=== PATIENT | female | born 1980 | race African-American/Black ===

== ENCOUNTER 2016-11-04 12:47 | Emergency (ER) | payer SELFPAY ==
[2016-11-04] MEDS ORDERED: Naproxen 500 MG TAB ONE (13:22)
--- NOTE | 2016-11-04 14:12 | RAD ---
CHEST PA AND LATERAL TWO VIEWS: History: 36-year-old female with left chest and left shoulder pain without associated injury. FINDINGS: Heart size is normal. The lungs are clear. IMPRESSION: No acute intrathoracic disease. POS: [facility]
--- NOTE | 2016-11-04 14:33 | ERRECORD ---
[facility] EMERGENCY RECORD HPI SHOULDER (13:16 ALIM) CHIEF COMPLAINT: Patient presents for evaluation of numbness, to the left shoulder, Patient presents for evaluation of pain, to the left shoulder. HISTORIAN: History provided by patient, 36 y/o female with no pmh, presenting with 2 days of L shoulder pain, located in the posterior shoulder, worse with internal rotation. Pt notes mild numbness in the distal LUE. No other complaints. MECHANISM OF INJURY: Unknown mechanism. LOCATION: Symptoms are localized, most severe in the scapula. QUALITY: Pain is dull in nature. SEVERITY: Maximum severity of symptoms moderate, Currently symptoms are moderate. TIME COURSE: Gradual onset of symptoms, 2, days priror to arrival. ASSOCIATED WITH: No associated alcohol use, No associated clavicle pain, No associated coolness to touch, No associated decreased range of motion, No associated decreased use, No associated distal injury, Associated with distal neuro complaint, No associated elbow pain, No associated erythema, No associated fever, No associated finger pain, No associated hand pain, No associated proximal injury, No associated open wounds, No associated swelling, No associated warmth, No associated wrist pain, No associated weakness distal to injury, Denies any other complaints. EXACERBATED BY: Patient's condition exacerbated by movement. RELIEVED BY: Patient's condition relieved by nothing, Patient's condition relieved by no pain medication taken since last night, Patient's condition relieved by nothing because patient has not tried anything for relief. ROS (13:18 ALIM) CONSTITUTIONAL: Negative constitutional review of systems, Historian denies chills, denies fever. EYES: Negative eye review of systems, Historian denies eye pain, denies eye redness. ENT: Negative ears, nose, throat review of systems, Historian denies rhinorrhea, denies sore throat. CARDIOVASCULAR: Negative cardiovascular review of systems, Historian denies chest pain, no radiation, Historian denies syncope. RESPIRATORY: Negative respiratory review of systems, Historian denies cough, denies shortness of breath. GI: Negative gastrointestinal review of systems, Historian denies abdominal pain, denies constipation, denies diarrhea, denies nausea, denies vomiting. MUSCULOSKELETAL: Historian denies back pain, denies neck pain. L posterior shoulder pain. SKIN: Negative skin review of systems, Historian denies rash, denies skin changes. NEUROLOGIC: Negative neurologic review of systems, Historian denies dizziness, denies focal weakness, denies headache. PSYCHIATRIC: Negative psychiatric review of systems, Historian &a-1R&a+25V*p+0X*[id number]*c202B*c15G*c2P*p-0X&a-25V&a+1R Name: Danita Lundberg : 1980 F36 MedRec: [id number] AcctNum: [id number] Prepared: FriNov 04, 2016 15:40 by Interface Page 1 of 4 pMD [facility] EMERGENCY RECORD denies alcohol abuse, denies anxiety, denies depression. NOTES: All systems reviewed, negative except as described above. PAST MEDICAL HISTORY MEDICAL HISTORY: Notes: ANENIA, CONSTIPATION, Flu vaccine up to date, Tetanus not up to date, Pneumococcal vaccine not up to date. (13:14 JPAR) FEMALE SURGICAL HISTORY: Surgical history of section, Surgical history of tubal ligation. (13:14 JPAR) SOCIAL HISTORY: Patient denies alcohol use, Patient denies drug use, Patient has no smoking history. (13:14 JPAR) NOTES: Nursing records reviewed, Agree with nursing records, Medication list reviewed, I have reviewed and agree with nursing PMH, PSH, social history, and FH. (13:18 ALIM) KNOWN ALLERGIES No Known Drug Allergies CURRENT MEDICATIONS Iron (ferrous sulfate): TABLET : Strength - 325 mg (65 mg iron) : ORAL Patient Dose: 1 tab(s) Oral once a day. (12:58 JPAR) Colace: CAPSULE : Strength - 100 mg : ORAL Patient Dose: 1 tab(s) Oral once a day. (12:59 JPAR) VITAL SIGNS VITAL SIGNS: BP: 121/81, Pulse: 85, Resp: 18, Temp: 97 (Oral), Pain: 8 (Stabbing), O2 sat: 100, Time: 11/04/2016 12:55. (12:55 JPAR) BP: 104/71, Pulse: 76, Resp: 17, Pain: 3, O2 sat: 100 on RA, Time: 11/04/2016 14:20. (14:20 GHIA) PHYSICAL EXAM (13:18 ALIM) CONSTITUTIONAL: Vital Signs Reviewed, Patient afebrile, Pulse normal, Blood pressure normal, Respiratory rate normal, Patient appears non toxic, Patient appears, in moderate pain distress, Patient alert and oriented to person, place and time, Nursing notes reviewed. HEAD: Head exam normal, Head exam included findings of head atraumatic, normocephalic. EYES: Eye exam normal, Eye exam included findings of eyelids normal to inspection, Pupils equally round and reactive to light, Extraocular muscles intact. ENT: ENT exam normal, Ear exam normal, Nose exam normal, Pharynx exam normal. NECK: Neck exam normal, Neck exam included findings of normal range of motion, Trachea midline. RESPIRATORY CHEST: Respiratory and chest exam normal, Respiratory exam included findings of no respiratory distress, Breath sounds &a-1R&a+25V*p+0X*[id number]*c202B*c15G*c2P*p-0X&a-25V&a+1R Name: Danita Lundberg : 1980 F36 MedRec: [id number] AcctNum: [id number] Prepared: FriNov 04, 2016 15:40 by Interface Page 2 of 4 pMD [facility] EMERGENCY RECORD clear, No wheezing. CARDIOVASCULAR: Cardiovascular assessment normal, Cardiovascular exam included findings of heart rate regular rate and rhythm, Heart sounds normal. BACK: Back exam normal, Back exam included findings of normal inspection, range of motion normal. UPPER EXTREMITY: Left clavicle exam normal, Right clavicle exam normal, Left shoulder exam included findings of, no ecchymosis, no swelling, no hematoma, no erythema, no warmth, tenderness, active range of motion normal, passive range of motion normal, distal pulses normal, capillary refill less than 2 seconds, distal motor intact, distal sensory intact, Right shoulder unaffected, Right shoulder exam normal, Left upper arm exam normal, Right upper arm exam normal, Left elbow exam normal, Right elbow exam normal, Left forearm exam normal, Right forearm exam normal, Left wrist exam normal, Right wrist exam normal, Left hand exam normal, Right hand exam normal. LOWER EXTREMITY: Lower extremity exam normal, Lower extremity exam included findings of inspection normal, Range of motion normal. NEURO: Neuro exam normal, Neeraj coma scale 15, Neuro exam findings include patient oriented to person, place and time, Speech normal, Gait normal. SKIN: Skin exam normal, Skin exam included findings of skin warm, dry, and normal in color. PSYCHIATRIC: Psychiatric exam normal, Psychiatric exam included findings of patient oriented to person place and time, Normal affect, Judgment normal. MEDICATION ADMINISTRATION SUMMARY Drug Name: Naprosyn, Dose Ordered: 500 mg, Route: Oral, Status: Given, Time: 13:30 11/04/2016, Detailed record available in Medication Service section. PROBLEM LIST No recorded problems DIAGNOSIS (13:20 ALIM) FINAL: PRIMARY: LEFT shoulder pain, ADDITIONAL: Left shoulder strain. PRESCRIPTION (13:21 ALIM) Mobic: TABLET : 15 mg : ORAL : Quantity: 15 Unit: mg Route: ORAL Schedule: once a day Dispense: 20 Unit: tab(s) May substitute. Refills: No Refills . NOTES: No Refills. Robaxin oral: TABLET : 750 mg : ORAL : Quantity: 750 Unit: mg Route: ORAL Schedule: every 6 hours PRN Dispense: 20 Unit: mg May substitute. Refills: No Refills . &a-1R&a+25V*p+0X*[id number]*c202B*c15G*c2P*p-0X&a-25V&a+1R Name: Danita Lundberg : 1980 F36 MedRec: [id number] AcctNum: [id number] Prepared: FriNov 04, 2016 15:40 by Interface Page 3 of 4 pMD [facility] EMERGENCY RECORD NOTES: No Refills. acetaminophen-codeine: TABLET : 300 mg-30 mg : ORAL : Quantity: 1 Unit: tab(s) Route: ORAL Schedule: every 8 hours PRN Dispense: 10 Unit: tab(s) May substitute. Refills: No Refills . NOTES: No Refills. DISPOSITION PATIENT: Disposition Type: Discharge, Disposition: *Discharge Home. (13:57 ALIM) Patient left the department. (14:30 MARISSA) Perez: JUAN=MD Baldemar, Chris ANN=OLYA Calzada, Polly HENLEY=OLYA Ramsay, Zheng &a-1R&a+25V*p+0X*[id number]*c202B*c15G*c2P*p-0X&a-25V&a+1R Name: Danita Lundberg : 1980 F36 MedRec: [id number] AcctNum: [id number] Prepared: FriNov 04, 2016 15:40 by Interface Page 4 of 4 pMD MTDD
--- NOTE | 2016-11-04 14:39 | PICIS ---
[facility] EMERGENCY RECORD TRIAGE (12:57 JPAR) TRIAGE NOTES: l BACK SHOULDER PAIN LEFT ARM NUMBNESS, PAIN WHEN CHANGING POSITIONS. (12:57 JPAR) PATIENT: NAME: Danita Lundberg, AGE: 36, GENDER: female, : Sun 1980, TIME OF GREET: FriNov 04, 2016 12:48, PREFERRED LANGUAGE: Urdu, ETHNICITY: Not or , ECODE BILLING MAP: [facility], SSN: [id number], Zip Code: [address], KG WEIGHT: 108.86, PHONE: , , , PERSON ID: [id number], PCP: Krystal WELCH. (12:57 JPAR) COMPLAINT: LEFT SHOULDER PAIN,LEFT HAND TINGLING. (12:57 JPAR) ADMISSION: URGENCY: 4 Non Urgent, ADMISSION SOURCE: Home, TRANSPORT: CAR, BED: TRIAGE. (12:57 JPAR) ASSESSMENT: Assessment: EFT SHOULDER PAIN, BACK PAIN RADIATES DOWN ARM, Symptoms began 2 DAYS, Symptoms began 2 days ago. (13:14 JPAR) SIRS SCORING: Heart Rate 55-109 (0), Temp range 96.8-101.1 (0), respiratory rate 12-24 (0), Mental Status altered: no (0), Infection or Suspected Infection: No. (13:14 JPAR) TRIAGE SCREENING: Patient denies suicidal ideation, Patient denies presence of domestic violence. (13:14 JPAR) PROVIDERS: TRIAGE NURSE: Zheng Ramsay RN. (12:57 JPAR) VITAL SIGNS: BP 121/81, Pulse 85, Resp 18, Temp 97, (Oral), Pain 8, (Stabbing), O2 Sat 100, Time 11/04/2016 12:55. (12:55 JPAR) KNOWN ALLERGIES No Known Drug Allergies CURRENT MEDICATIONS Iron (ferrous sulfate): TABLET : Strength - 325 mg (65 mg iron) : ORAL Patient Dose: 1 tab(s) Oral once a day. (12:58 JPAR) Colace: CAPSULE : Strength - 100 mg : ORAL Patient Dose: 1 tab(s) Oral once a day. (12:59 JPAR) VITAL SIGNS VITAL SIGNS: BP: 121/81, Pulse: 85, Resp: 18, Temp: 97 (Oral), Pain: 8 (Stabbing), O2 sat: 100, Time: 11/04/2016 12:55. (12:55 JPAR) BP: 104/71, Pulse: 76, Resp: 17, Pain: 3, O2 sat: 100 on RA, Time: 11/04/2016 14:20. (14:20 GHIA) NURSING ASSESSMENT: BACK (13:00 JPAR) CONSTITUTIONAL: Patient arrives ambulatory, Gait steady, History obtained from patient, Patient appears, uncomfortable, Patient cooperative, Patient alert, Oriented to person, place and time, Skin warm, Skin dry, Skin normal in color, Mucous membranes pink, Mucous membranes moist, Patient complains of L flank/ shoulder pain, impinged nerve. PAIN: aching pain, to the upper back, to &a-1R&a+25V*p+0X*q8085W*c202B*c15G*c2P*p-0X&a-25V&a+1R Name: Danita Lundberg : 1980 F36 MedRec: [id number] AcctNum: [id number] Prepared: FriNov 04, 2016 15:40 by Interface Page 1 of 8 pMD [facility] EMERGENCY RECORD the mid back, to the left flank, on a scale 0-10 patient rates pain as 8. BACK: Paresthesias described as, tingling sensation, to the left upper extremity, no weakness to extremities, no incontinence of bowel or bladder, Right radial pulse +3(easily palpated, considered normal), Left radial pulse +3(easily palpated, considered normal), Left dorsalis pedis pulse +3(easily palpated, considered normal), Right dorsalis pedis pulse +3(easily palpated, considered normal). SAFETY: Side rails up, Cart/Stretcher in lowest position, Family at bedside, Call light within reach, Hospital ID band on. NURSING PROCEDURE: DISCHARGE NOTE (14:20 GHIA) DISCHARGE: Patient discharged to home, ambulating without assistance, patient walking, accompanied by friend, Summary of Care printed/ provided, Transition record given to patient, Discharge instructions given to patient, Simple or moderate discharge teaching performed, Prescriptions given and instructions on side effects given, Above person(s) verbalized understanding of discharge instructions and follow-up care. BELONGINGS: Belongings remain with patient, Valuables remain with patient. NOTES: Patient tolerated procedure well. SAFETY: Notes: Pt cheerful. No c/o. VITAL SIGNS: BP: 104, / 71, Pulse: 76, Resp: 17, Pain: 3, O2 sat: 100, on: RA. NURSING PROCEDURE: NURSE NOTES (14:15 GHIA) NURSES NOTES: Notes: Per Zheng Yoder...it is Ok for me to discharge pt. NURSING PROCEDURE: URINE COLLECTION (13:29 JPAR) PATIENT IDENTIFIER: Patient actively involved in identification process, Patient's identity verified by patient stating name, Patient's identity verified by patient stating date, Patient's identity verified by hospital ID bracelet, Patient's identity verified by family member. URINE COLLECTION FEMALE: Urine collection indicated to monitor output, Urine collected by void, output amount (mL) 100, urine yellow in color, and clear, Specimen labeled in the presence of the patient and sent to lab, Specimen obtained for culture labeled in the presence of the patient and sent to lab. SAFETY: Side rails up, Cart/Stretcher in lowest position, Family at bedside, Call light within reach, Hospital ID band on. ORDER DETAILS Order Name: Test, Urine (BHCG), Status: Active, Time: 13:05 11/04/2016, User: JUAN, - Ordered for: MD Mcdermott Arthur, &a-1R&a+25V*p+0X*f2350D*c202B*c15G*c2P*p-0X&a-25V&a+1R Name: Danita Lundberg : 1980 F36 MedRec: [id number] AcctNum: [id number] Prepared: FriNov 04, 2016 15:40 by Interface Page 2 of 8 pMD [facility] EMERGENCY RECORD - Entered by: MD Mcdermott Arthur - FriNov 04, 2016 13:05, - Quantity: 1, Order Name: XR Chest Pa & Lat STANDARD, Status: Active, Time: 13:04 11/04/2016, User: JUAN, - Ordered for: MD Mcdermott Arthur, - Entered by: MD Mcdermott Arthur - FriNov 04, 2016 13:04, - Quantity: 1, Order Name: XR Shoulder Lt 3 View STANDARD, Status: Active, Time: 13:04 11/04/2016, User: JUAN, - Ordered for: MD Mcdermott Arthur, - Entered by: MD Mcdermott Arthur - FriNov 04, 2016 13:04, - Quantity: 1. MEDICATION ADMINISTRATION SUMMARY Drug Name: Naprosyn, Dose Ordered: 500 mg, Route: Oral, Status: Given, Time: 13:30 11/04/2016, Detailed record available in Medication Service section. MEDICATION SERVICE (13:30 ALIM) Naprosyn: Order: Naprosyn (naproxen) - Dose: 500 mg : Oral Schedule: Now Ordered by: Chris Mcdermott MD Entered by: Chris Mcdermott MD FriNov 04, 2016 13:06 , Acknowledged by: Zheng Ramsay RN FriNov 04, 2016 13:14 Documented as given by: Zheng Ramsay RN FriNov 04, 2016 13:30 Patient, Medication, Dose, Route and Time verified prior to administration. Patient appears Awake and alert- acceptable, Correct patient, time, route, dose and medication confirmed prior to administration, Patient advised of actions and side-effects prior to administration, Allergies confirmed and medications reviewed prior to administration, Patient in position of comfort, Side rails up, Cart in lowest position, Family at bedside, Call light in reach. HPI SHOULDER (13:16 ALIM) CHIEF COMPLAINT: Patient presents for evaluation of numbness, to the left shoulder, Patient presents for evaluation of pain, to the left shoulder. HISTORIAN: History provided by patient, 36 y/o female with no pmh, presenting with 2 days of L shoulder pain, located in the posterior shoulder, worse with internal rotation. Pt notes mild numbness in the distal LUE. No other complaints. MECHANISM OF INJURY: Unknown mechanism. LOCATION: Symptoms are localized, most severe in the scapula. QUALITY: Pain is dull in nature. SEVERITY: Maximum severity of symptoms moderate, Currently symptoms are moderate. TIME COURSE: Gradual onset of symptoms, 2, days priror to arrival. ASSOCIATED WITH: &a-1R&a+25V*p+0X*p7894C*c202B*c15G*c2P*p-0X&a-25V&a+1R Name: Danita Lundberg : 1980 F36 MedRec: [id number] AcctNum: [id number] Prepared: FriNov 04, 2016 15:40 by Interface Page 3 of 8 pMD [facility] EMERGENCY RECORD No associated alcohol use, No associated clavicle pain, No associated coolness to touch, No associated decreased range of motion, No associated decreased use, No associated distal injury, Associated with distal neuro complaint, No associated elbow pain, No associated erythema, No associated fever, No associated finger pain, No associated hand pain, No associated proximal injury, No associated open wounds, No associated swelling, No associated warmth, No associated wrist pain, No associated weakness distal to injury, Denies any other complaints. EXACERBATED BY: Patient's condition exacerbated by movement. RELIEVED BY: Patient's condition relieved by nothing, Patient's condition relieved by no pain medication taken since last night, Patient's condition relieved by nothing because patient has not tried anything for relief. ROS (13:18 ALIM) CONSTITUTIONAL: Negative constitutional review of systems, Historian denies chills, denies fever. EYES: Negative eye review of systems, Historian denies eye pain, denies eye redness. ENT: Negative ears, nose, throat review of systems, Historian denies rhinorrhea, denies sore throat. CARDIOVASCULAR: Negative cardiovascular review of systems, Historian denies chest pain, no radiation, Historian denies syncope. RESPIRATORY: Negative respiratory review of systems, Historian denies cough, denies shortness of breath. GI: Negative gastrointestinal review of systems, Historian denies abdominal pain, denies constipation, denies diarrhea, denies nausea, denies vomiting. MUSCULOSKELETAL: Historian denies back pain, denies neck pain. L posterior shoulder pain. SKIN: Negative skin review of systems, Historian denies rash, denies skin changes. NEUROLOGIC: Negative neurologic review of systems, Historian denies dizziness, denies focal weakness, denies headache. PSYCHIATRIC: Negative psychiatric review of systems, Historian denies alcohol abuse, denies anxiety, denies depression. NOTES: All systems reviewed, negative except as described above. PAST MEDICAL HISTORY MEDICAL HISTORY: Notes: ANENIA, CONSTIPATION, Flu vaccine up to date, Tetanus not up to date, Pneumococcal vaccine not up to date. (13:14 JPAR) FEMALE SURGICAL HISTORY: Surgical history of section, Surgical history of tubal ligation. (13:14 JPAR) SOCIAL HISTORY: Patient denies alcohol use, Patient denies drug use, Patient has no smoking history. (13:14 JPAR) NOTES: Nursing records reviewed, Agree with nursing records, Medication list reviewed, I have reviewed and agree with nursing PMH, &a-1R&a+25V*p+0X*d8113F*c202B*c15G*c2P*p-0X&a-25V&a+1R Name: Danita Lundberg : 1980 F36 MedRec: [id number] AcctNum: [id number] Prepared: FriNov 04, 2016 15:40 by Interface Page 4 of 8 pMD [facility] EMERGENCY RECORD PSH, social history, and FH. (13:18 ALIM) PHYSICAL EXAM (13:18 ALIM) CONSTITUTIONAL: Vital Signs Reviewed, Patient afebrile, Pulse normal, Blood pressure normal, Respiratory rate normal, Patient appears non toxic, Patient appears, in moderate pain distress, Patient alert and oriented to person, place and time, Nursing notes reviewed. HEAD: Head exam normal, Head exam included findings of head atraumatic, normocephalic. EYES: Eye exam normal, Eye exam included findings of eyelids normal to inspection, Pupils equally round and reactive to light, Extraocular muscles intact. ENT: ENT exam normal, Ear exam normal, Nose exam normal, Pharynx exam normal. NECK: Neck exam normal, Neck exam included findings of normal range of motion, Trachea midline. RESPIRATORY CHEST: Respiratory and chest exam normal, Respiratory exam included findings of no respiratory distress, Breath sounds clear, No wheezing. CARDIOVASCULAR: Cardiovascular assessment normal, Cardiovascular exam included findings of heart rate regular rate and rhythm, Heart sounds normal. BACK: Back exam normal, Back exam included findings of normal inspection, range of motion normal. UPPER EXTREMITY: Left clavicle exam normal, Right clavicle exam normal, Left shoulder exam included findings of, no ecchymosis, no swelling, no hematoma, no erythema, no warmth, tenderness, active range of motion normal, passive range of motion normal, distal pulses normal, capillary refill less than 2 seconds, distal motor intact, distal sensory intact, Right shoulder unaffected, Right shoulder exam normal, Left upper arm exam normal, Right upper arm exam normal, Left elbow exam normal, Right elbow exam normal, Left forearm exam normal, Right forearm exam normal, Left wrist exam normal, Right wrist exam normal, Left hand exam normal, Right hand exam normal. LOWER EXTREMITY: Lower extremity exam normal, Lower extremity exam included findings of inspection normal, Range of motion normal. NEURO: Neuro exam normal, Preston coma scale 15, Neuro exam findings include patient oriented to person, place and time, Speech normal, Gait normal. SKIN: Skin exam normal, Skin exam included findings of skin warm, dry, and normal in color. PSYCHIATRIC: Psychiatric exam normal, Psychiatric exam included findings of patient oriented to person place and time, Normal affect, Judgment normal. LAB INTERPRETATION (13:58 ALIM) INTERPRETATION: I reviewed the lab results, All labs normal except as noted below, Lab results have been reviewed and are &a-1R&a+25V*p+0X*a9904Y*c202B*c15G*c2P*p-0X&a-25V&a+1R Name: Danita Lundberg : 1980 F36 MedRec: [id number] AcctNum: [id number] Prepared: FriNov 04, 2016 15:40 by Interface Page 5 of 8 D [facility] EMERGENCY RECORD attached to this chart. EVENTS TRANSFER: Triage to Emergency Triage. (FriNov 04, 2016 12:57 JPAR) Emergency Triage to Emergency Room -03. (12:58 ALIM) Removed from Emergency Emergency Room -03. (14:30 GHIA) ATTENDING (13:18 ALIM) ATTENDING: The documented history was done by me personally, The documented physical exam was done by me personally, The documented procedures were done by me personally, I have personally seen and examined this patient. I have fully participated in the care of this patient. I have reviewed all pertinent clinical information, including history, physical exam and plan. PROBLEM LIST No recorded problems DIAGNOSIS (13:20 ALIM) FINAL: PRIMARY: LEFT shoulder pain, ADDITIONAL: Left shoulder strain. DISPOSITION PATIENT: Disposition Type: Discharge, Disposition: *Discharge Home. (13:57 ALIM) Patient left the department. (14:30 GHIA) INSTRUCTION (14:00 ALIM) DISCHARGE: SHOULDER PAIN (UNCERTAIN CAUSE). FOLLOWUP: [facility], /[facility], [address], [facility] [address], , MD STEVENSON, SUBHASH, Orthopedics, [address] [address], DO Woody, Jarrod, Orthopedics, [address], [address], [facility] [address], , MD Kelvin, Kye, Orthopedics, [address] [facility], [facility], [facility] [address], , MD ANDIE, DONI, Orthopedics, [address] [address], [id number], MD Kaitlyn, Arnie, Orthopedic Surgery, [address], [address], [facility] [address], [facility], . SPECIAL: Follow-up with your primary care physician in 2-3 days for reevaluation. Please review the instructions and educational material provided for you. Return to the Emergency Center if you have worsening symptoms not controlled by medication, or if you have chest pain, shortness of breath, nausea and vomiting that cannot be controlled, or any other medical concerns. PRESCRIPTION (13:21 ALIM) Mobic: TABLET : 15 mg : ORAL : Quantity: 15 Unit: mg Route: ORAL Schedule: once a day Dispense: 20 Unit: tab(s) &a-1R&a+25V*p+0X*b8980M*c202B*c15G*c2P*p-0X&a-25V&a+1R Name: Danita Lundberg : 1980 F36 MedRec: [id number] AcctNum: [id number] Prepared: FriNov 04, 2016 15:40 by Interface Page 6 of 8 pMD [facility] EMERGENCY RECORD May substitute. Refills: No Refills . NOTES: No Refills. Robaxin oral: TABLET : 750 mg : ORAL : Quantity: 750 Unit: mg Route: ORAL Schedule: every 6 hours PRN Dispense: 20 Unit: mg May substitute. Refills: No Refills . NOTES: No Refills. acetaminophen-codeine: TABLET : 300 mg-30 mg : ORAL : Quantity: 1 Unit: tab(s) Route: ORAL Schedule: every 8 hours PRN Dispense: 10 Unit: tab(s) May substitute. Refills: No Refills . NOTES: No Refills. IMAGING *SUPPLY CHARGE SHEET: Image captured from scanner. (14:38 GHIA) *DISCHARGE INSTRUCTIONS RECEIPT: Image captured from scanner. (14:39 GHIA) Page 2 added. Image captured from scanner. (14:39 GHIA) ADMIN (15:34 ALIM) DIGITAL SIGNATURE: MD Mcdermott Arthur. RESULTS RADIOLOGY: XR Shoulder Lt 3 View STANDARD Observe DT: FriNov 04, 2016 13:07, SHOU3L LEFT SHOULDER 3 VIEWS: Date: 11/04/16 HISTORY: 36-year-old female with left shoulder pain and numbness to arm. FINDINGS: Minimal AC joint arthrosis changes. No acute fracture or dislocation. IMPRESSION: Mild AC joint arthrosis. No other acute process. POS: [facility] . (15:34 ALIM) XR Chest Pa & Lat STANDARD Observe DT: FriNov 04, 2016 13:06, CXR2 CHEST PA AND LATERAL TWO VIEWS: History: 36-year-old female with left chest and left shoulder pain without associated injury. FINDINGS: &a-1R&a+25V*p+0X*k4911O*c202B*c15G*c2P*p-0X&a-25V&a+1R Name: Danita Lundberg : 1980 F36 MedRec: [id number] AcctNum: [id number] Prepared: FriNov 04, 2016 15:40 by Interface Page 7 of 8 pMD [facility] EMERGENCY RECORD Heart size is normal. The lungs are clear. IMPRESSION: No acute intrathoracic disease. POS: [facility] . (15:34 ALIM) LABORATORY: Test, Urine (BHCG) Collection DT: FriNov 04, 2016 13:33, Test - Urine (BHCG) NEGATIVE , Range (NEGATIVE), Method of sensitivity- Indeterminant: results should be repeated, after 48 hours. Positive: results may be detected as early as 4-5 days before a first missed menses. Elimination of BHCG-, Elimination following first trimester D&C: 29-44 Days , Elimination following term : 8-24 Days , Specific [place] 1.025 , Range (1.002-1.036), A dilute urine specimen may, not contain construction sales representative levels of hCG. If is still, suspected, a first morning urine specimen OR a random blood specimen should, be obtained from the patient 48-72 hours later and re-tested. , . (13:56 JUAN) Perez: JUAN=MD Baldemar, Chris ANN=OLYA Calzada, Polly HENLEY=OLYA Ramsay, Zheng &a-1R&a+25V*p+0X*a6790C*c202B*c15G*c2P*p-0X&a-25V&a+1R Name: Danita Lundberg : 1980 F36 MedRec: [id number] AcctNum: [id number] Prepared: FriNov 04, 2016 15:40 by Interface Page 8 of 8 pMD [facility]TDD
--- NOTE | 2016-11-04 15:07 | RAD ---
LEFT SHOULDER 3 VIEWS: Date: 11/04/16 HISTORY: 36-year-old female with left shoulder pain and numbness to arm. FINDINGS: Minimal AC joint arthrosis changes. No acute fracture or dislocation. IMPRESSION: Mild AC joint arthrosis. No other acute process. POS: [facility]
== END 2016-11-04 14:20 | disposition home or self-care (01) ==
LOC: NAV ERS 12:47
DX: S46.912A Strain of unspecified muscle, fascia and tendon at shoulder and upper arm level, left arm, initial encounter (principal); D64.9 Anemia, unspecified; Z98.51 Tubal ligation status; Z79.899 Other long term (current) drug therapy; X58.XXXA Exposure to other specified factors, initial encounter
CPT/HCPCS: 71020; 81025; 99284

== ENCOUNTER 2017-02-14 16:50 | Emergency (ER) | payer SELFPAY ==
[2017-02-14] MEDS ORDERED: Lidocaine Viscous Sol 2% 15 ml UD Cup ONE (17:26)
[2017-02-14] MEDS ORDERED: Mag-Al Plus 1200 MG/1200 MG/120 MG/30 ML UDCUP ONE (17:26)
[2017-02-14] MEDS ORDERED: Ondansetron HCl/PF 4 MG/2 ML Vial ONE (17:26)
[2017-02-14] MEDS ORDERED: Sodium Chloride 0.9% 1,000 ML ONE (17:26)
[2017-02-14 17:31] LABS: #Basophils 0.1 thou/uL (0.0-0.2); #Eosinphils 0.1 thou/uL (0.0-0.7); #Lymphocytes 3.2 thou/uL (1.20-3.40); #Monocytes 0.6 thou/uL (0.11-0.59); #Neutrophils 3.7 thou/uL (1.40-6.50); %Basophils 1.3 % (0.0-1.0); %Eosinophils 1.9 % (0.0-10.0); %Lymphocytes 41.7 % (21.0-51.0); %Monocytes 7.2 % (0.0-10.0); %Neutrophils 47.9 % (42.0-75.0); Hemoglobin 9.9 g/dL (12.0-16.0); Mean Corpuscular HGB CONC 32.4 g/dL (32.0-36.0); Mean Corpuscular Hemoglobin 25.9 pg (27.0-31.0); Mean Corpuscular Volume 79.9 fl (81.0-99.0); Mean Platelet Volume 6.4 fL (7.4-10.4); Platelet Count 403 thou/uL (130-400); RBC Distribution Width 14.4 % (11.5-14.5); White Blood Cell (WBC) Count 7.7 thou/uL (4.8-10.8)
[2017-02-14 17:47] LABS: ALT (SGPT) 12 U/L (0-55); AST (SGOT) 16 U/L (5-34); Alkaline Phosphatase 67 U/L (40-150); Anion Gap 16 mmol/L (10-20); BUN (Urea Nitrogen) 11 mg/dL (7.0-18.7); Bilirubin, Total 0.5 mg/dL (0.2-1.2); Calc. Creatinine Clearance 0 mL/min (70-130); Calcium 9.4 mg/dL (7.8-10.44); Carbon Dioxide 20 mmol/L (22-29); Chloride 105 mmol/L (98-107); Estimated GFR-MDRD 88; Globulin 4.7 g/dL (2.4-3.5); Glucose 90 mg/dL (70-105); Potassium 3.8 mmol/L (3.5-5.1); Protein, Total 8.7 g/dL (6.0-8.3); Sodium 137 mmol/L (136-145)
[2017-02-14 17:52] LABS: Amylase 37 U/L (25-125); Lipase 15 U/L (8-78)
== END 2017-02-14 18:44 | disposition home or self-care (01) ==
LOC: NAV ERS 16:50
DX: K29.00 Acute gastritis without bleeding (principal); D64.9 Anemia, unspecified; Z79.899 Other long term (current) drug therapy
CPT/HCPCS: 80053; 82150; 83690; 85025; 96361; 96374; J2405; J7050